=== PATIENT | female | born 1940 | race Caucasian/White ===

== ENCOUNTER → 2019-02-09 14:53 | Outpatient (CLI) | payer MEDICARE, BC ==
[2016-03-12 10:12] VITALS: BMI 36.3
[~2019-02-09 14:53] MED LIST: ABILIFY15 MG PO; ATIVAN1 MG PO; BIOTIN5 MG PO; FERROUS SULFAT325 MG PO; GLUCOPHAGE500 MG PO; HYDROCODONE-APA1 TAB PO; LASIX40 MG PO; MULTIPLE VITAMI1 TA1 PO; OMEPRAZOLE40 MG PO; POTASSIUM99 M1; PRINIVIL20 MG PO; PROAIR HFA8.5 GM INH; VITAMIN D31000 UNIT PO; ZOLOFT100 MG PO
== END | disposition home or self-care (01) ==
LOC: D.LABREF 14:53
PROVIDERS: ATTEND Orthopaedic Surgery
DX: M17.12 Unilateral primary osteoarthritis, left knee (principal)

== ENCOUNTER 2019-02-13 17:11 | Inpatient (IN) | payer MEDICARE, BC ==
[~2019-02-13] VITALS: Ht 157.5 cm; Wt 104.5 kg
[2019-02-22 11:26] LABS: ANION GAP 11.2 mmol/L (8-16); CALCIUM 9.2 mg/dL (8.5-10.1); POTASSIUM - SERUM 4.2 mmol/L (3.5-5.1)
[2019-02-22 11:31] LABS: BASOPHILS 0.3 % (0-2); EOSINOPHILS 4.4 % (0-7); HEMATOCRIT 34.5 % (36.0-48.0); IMMATURE GRANULOCYTES 0.2 % (0-5); LYMPHOCYTES 16.2 % (15-50); MCH 28.6 pg (26.0-34.0); MCHC 31.9 g/dL (31.0-37.0); MCV 89.6 fL (80.0-100.0); MEAN PLATELET VOLUME 9.7 fL (7.4-10.4); MONOCYTES 6.7 % (2-11); NEUTROPHILS 72.2 % (40-80); PLATELET COUNT 277 10x3/uL (130-400); RBC 3.85 10x6/uL (4.00-5.40)
[2019-02-22 11:33] LABS: APTT 31.8 SECONDS (22.8-39.4); INR 0.89 (0.85-1.17); PROTIME 11.6 SECONDS (11.6-15.0)
[2019-02-22 13:15] LABS: APPEARANCE CLEAR (CLEAR); BACTERIA FEW /hpf (NEGATIVE); BILIRUBIN NEGATIVE (NEGATIVE); COLOR YELLOW (YELLOW); EPITHELIAL CELLS 0-5 /hpf (0-5); GLUCOSE NEGATIVE (NEGATIVE); KETONE NEGATIVE (NEGATIVE); MUCUS <1+ /lpf (NONE SEEN); NITRITE NEGATIVE (NEGATIVE); PROTEIN NEGATIVE (NEGATIVE); RED CELLS - URINE RARE /hpf (0-5); SPECIFIC GRAVITY 1.015 (1.005-1.020); UROBILINOGEN NORMAL (NORMAL); WHITE CELLS - URINE 0-5 /hpf (NEGATIVE)
[2019-02-22] MEDS ORDERED: IBUPROFEN600 MG PO (16:18)
[2019-02-22] MEDS ORDERED: ABILIFY10 MG PO (16:19)
[2019-02-22] MEDS ORDERED: LISINOPRIL20 MG PO (16:20)
[2019-02-22] MEDS ORDERED: FUROSEMIDE40 MG PO (16:20)
[2019-02-22] MEDS ORDERED: PROTONIX40 MG PO (16:20)
[2019-02-22] MEDS ORDERED: BUPROPION HCL100 MG PO (16:22)
[2019-02-22] MEDS ORDERED: ATIVAN1 MG PO (16:24)
[2019-02-22] MEDS ORDERED: ULTRAM50 MG PO (16:25)
[2019-02-22] MEDS ORDERED: allergy relief PO (16:26)
[2019-02-22] MEDS ORDERED: MERIBIN5 MG PO (16:26)
[2019-02-22] MEDS ORDERED: CENTRUM SILVER1 EAC3 PO (16:26)
[2019-02-22] MEDS ORDERED: CALCIUM 600 +1 EAC3 PO (16:27)
[2019-02-22] MEDS ORDERED: FLOVENT DISKU100 MCG INH (16:28)
[2019-02-22] MEDS ORDERED: ADVAIR HFA [SP]12 GM INH (16:30)
[2019-02-22] MEDS ORDERED: ZOLOFT100 MG PO (16:31)
[2019-02-22] MEDS ORDERED: DONEPEZIL HCL5 MG PO (16:31)
[2019-02-22] MEDS ORDERED: EZFE 200200 MG PO (16:31)
[2019-02-28] VITALS (13 sets, daily range): BP systolic 127–178; BP diastolic 44–67; Ht 157.5 cm; Wt 104.5 kg
[2019-02-28] MEDS ORDERED: CIPRO500 MG PO (07:07)
--- NOTE | 2019-02-28 09:30 | NUR ---
PLASMA BLADE SET AT 6/8. BOVIE PAD ON RIGHT SIDE. LOT [id number] EXP 11/16/2020. LAMANAR FLOW NOT IN USE. TRAFFIC MONITORED AND KEPT TO MINIMUM. ROOM CLEAN WITH ASEPTIC TECHNIQUE PRIOR TO PROCEDURE. LEFT UPPER THIGH TO TOES CIRCUMFRETIALLY WITH ALCOHOL, HIBICLENS, AND CHLOROPREP. VANC 1G TOBRAMYOCIN 1.25G APPLIED TO WOUND BED.
[2019-02-28 15:55] LABS: BASOPHILS 0.1 % (0-2); EOSINOPHILS 0.2 % (0-7); HEMATOCRIT 30.8 % (36.0-48.0); HEMOGLOBIN 9.5 g/dL (12-16); IMMATURE GRANULOCYTES 0.3 % (0-5); LYMPHOCYTES 6.3 % (15-50); MCH 28.4 pg (26.0-34.0); MCHC 30.8 g/dL (31.0-37.0); MCV 92.2 fL (80.0-100.0); MEAN PLATELET VOLUME 9.8 fL (7.4-10.4); MONOCYTES 2.7 % (2-11); NEUTROPHILS 90.4 % (40-80); PLATELET COUNT 287 10x3/uL (130-400); RBC 3.34 10x6/uL (4.00-5.40); RDW 12.8 % (11.5-14.5); WBC 12.1 10x3/uL (4.8-10.8)
[2019-02-28 16:01] LABS: ANION GAP 11.2 mmol/L (8-16); BILIRUBIN - TOTAL 0.17 mg/dL (0.2-1.3); CARBON DIOXIDE 27.4 mmol/L (21.0-32.0); CREATININE - SERUM 1.4 mg/dL (0.6-1.3); POTASSIUM - SERUM 4.6 mmol/L (3.5-5.1); PROTEIN - SERUM 6.2 g/dL (6.4-8.2)
--- NOTE | 2019-02-28 20:00 | NUR ---
ASSESSMENT PER FLOWSHEET. DRSG TO LEFT KNEE C/D/I. LEG IN CPM. DUE TO BE REMOVED. IV PATENT RT FOREARM OF 1/2NS AT 50CC'S/HR. SR UP X2 CALL LIGHT WITHIN REACH. LUCAS MAT ON.
--- NOTE | 2019-02-28 21:00 | NUR ---
MEDS PER MAR COMPLETE BED BATH WITH LINENS CHANGE DONE PER DIRECTIONAL DRILLER.
--- NOTE | 2019-02-28 22:50 | NUR ---
MEDS GIVEN PER MAR.
[2019-03-01 01:50] VITALS: BP 136/59
--- NOTE | 2019-03-01 03:58 | NUR ---
C/O PAIN INCISIONAL AEA. NORCO 5MG TAB ONE PO GIVEN FOR PAIN CONTROL.
[2019-03-01 04:58] VITALS: BP 124/46
[2019-03-01 06:19] LABS: BASOPHILS 0.2 % (0-2); EOSINOPHILS 1.2 % (0-7); HEMATOCRIT 29.5 % (36.0-48.0); HEMOGLOBIN 9.1 g/dL (12-16); IMMATURE GRANULOCYTES 0.3 % (0-5); LYMPHOCYTES 21.6 % (15-50); MCH 28.3 pg (26.0-34.0); MCHC 30.8 g/dL (31.0-37.0); MCV 91.9 fL (80.0-100.0); MEAN PLATELET VOLUME 9.6 fL (7.4-10.4); MONOCYTES 8.8 % (2-11); NEUTROPHILS 67.9 % (40-80); PLATELET COUNT 280 10x3/uL (130-400); RBC 3.21 10x6/uL (4.00-5.40); RDW 12.8 % (11.5-14.5); WBC 9.5 10x3/uL (4.8-10.8)
[2019-03-01 06:36] LABS: ALBUMIN 2.9 g/dL (3.4-5.0); ANION GAP 10.9 mmol/L (8-16); BILIRUBIN - TOTAL 0.15 mg/dL (0.2-1.3); CARBON DIOXIDE 28.1 mmol/L (21.0-32.0); CREATININE - SERUM 0.9 mg/dL (0.6-1.3); PROTEIN - SERUM 5.6 g/dL (6.4-8.2)
--- NOTE | 2019-03-01 07:27 | NUR ---
PT IS RESTING IN BED WITH EYES OPEN. RESPIRATIONS ARE EVEN AND UNLABORED. PT WITH LEFT LEG IN CPM AT THIS TIME. PT REPORTS THAT SHE IS STARTING TO HAVE THE FEELING RETURN TO LLE. PT IS ABLE TO WIGGLE LLE TOES AND PULSES ARE PALPABLE IN LEFT FOOT. DRESSING TO LEFT KNEE IS CDI. PT IS AAO X 4. PT DENIES PRESENCE OF N/V AND RATES PAIN 4/10. WILL ADDRESS. SEE EMAR. BED IS IN THE LOWEST POSITION. CALL LIGHT AND BEDSIDE TABLE ARE WITHIN REACH. SIDE RAILS X 2. LUCAS ALARM IS ON AND WORKING. PT DENIES FURTHER NEEDS. WILL CONT TO MONITOR.
[2019-03-01 09:03] VITALS: BP 138/65
--- NOTE | 2019-03-01 11:51 | MORECARE ---
CASE MANAGEMENT DISCHARGE SUMMARY PATIENT: JOSE ROBERTO LLAMAS UNIT: [id number] ADM DATE: 02/28/19 AGE: 78 : 41 SEX: F ROOM/BED: D.2228 AUTHOR: JOSE F GALICIA PHYSICIAN: REFERRING PHYSICIAN: MAIA EMERSON DO DATE OF SERVICE: 03/01/19 Discharge Plan Patient Name: JOSE ROBERTO LLAMAS [facility] [facility] 1940 Planned Disposition: Care Home Facility Anticipated Discharge Date: 03/03/19 Discharge Date: Expected LOS: 3 Initial Reviewer: [id number] Initial Review Date: 03/01/2019 Generated: 03/01/19 12:51 pm DCPIA - Discharge Planning Initial Assessment Updated by [email or web address]: Dania Turpin on 03/01/19 11:49 am * Is the patient Alert and Oriented? Yes * How many steps to enter\exit or inside your home? 3/0 * PCP Ashley Juarez NP with Dr. Tanner in [facility]. * Pharmacy [facility] in [place] * Preadmission Environment Home with Family * ADLs Independent * Equipment Other Rolling Walker * Other Equipment CPM Ice machine * List name and contact numbers for known caregivers / representatives who currently or will assist patient after discharge: Mike Llamas - [facility] - [phone] * Verbal permission to speak to the caregivers and representatives has been obtained from the patient. Yes * Community resources currently utilized None * Additional services required to return to the preadmission environment? Yes * Can the patient safely return to the preadmission environment? Yes * Has this patient been hospitalized within the prior 30 days at any hospital? No Patient Name: JOSE ROBERTO LLAMAS Page [id number] at 1151 All edits/amendments must be made on the electronic document DICTATION DATE: 03/01/19 1151 COST CONTROL SUPERVISOR: DAVID 03/01/19 115 RPT#: [id number] DC DATE: STATUS: ADM IN [facility] [address] [place] [address] END OF REPORT
--- NOTE | 2019-03-01 11:59 | MORECARE ---
CASE MANAGEMENT DISCHARGE SUMMARY PATIENT: JOSE ROBERTO LLAMAS UNIT: [id number] ADM DATE: 02/28/19 AGE: 78 : 41 SEX: F ROOM/BED: D.2228 AUTHOR: FRIDA,DOC PHYSICIAN: REFERRING PHYSICIAN: MAIA EMERSON DO DATE OF SERVICE: 03/01/19 Discharge Plan Patient Name: JOSE ROBERTO LLAMAS Facility: [facility]:[place] : 1940 Planned Disposition: Longterm Facility Anticipated Discharge Date: 03/03/19 Discharge Date: Expected LOS: 3 Initial Reviewer: [email or web address] Initial Review Date: 03/01/2019 Generated: 03/01/19 12:59 pm Comments DCP- Discharge Planning Updated by [id number]: Dania Turpin on 03/01/19 10:[address] Patient Name: JOSE ROBERTO LLAMAS Admission Status: Elective Accout number: [id number] Admission Date: 02-28-2019 : 1940 Admission Diagnosis: Attending: MAIA EMERSON Current LOS: 1 Anticipated DC Date: 03-03-2019 Planned Disposition: Longterm Facility Primary Insurance: MEDICARE A & B Discharge Planning Comments: CM met with patient and her to discuss discharge planning/needs. She states she would like to go to [place] for skilled therapy prior to going home. states he will take her there. Their physical address is [address] [place] [address]. I have discussed this with Dr. Emerson and he is in agreement, plan to discharge Wednesday after 3 midnight's have been met. I spoke with rusty Ayala for [place], and clinical faxed. CM will continue to follow and assist with discharge planning/needs. Television Program Director: Dania Turpin DCPIA - Discharge Planning Initial Assessment Updated by [id number]: Dania Turpin on 03/01/19 11:49 am * Is the patient Alert and Oriented? Yes * How many steps to enter\exit or inside your home? 3/0 * PCP Ashley Juarez, WEIR FISHERMAN with Dr. Tanner in [facility]. * Pharm[facility] in [place] * Preadmission Environment Home with Family * ADLs Independent * Equipment Other Rolling Walker * Other Equipment CPM Ice machine * List name and contact numbers for known caregivers / representatives who currently or will assist patient after discharge: Mike Llamas - [facility] - [phone] * Verbal permission to speak to the caregivers and representatives has been obtained from the patient. Yes * Community resources currently utilized None * Additional services required to return to the preadmission environment? Yes * Can the patient safely return to the preadmission environment? Yes * Has this patient been hospitalized within the prior 30 days at any hospital? No Coverage Notice Reviewer: [id number] Turpin Notice Issued Date-Time: 03/01/2019 11:51 Notice Type: Patient Choice Letter Notice Delivered To: Patient Relationship to Patient: Self Acid Bath Mixer Name: Delivery Method: HAND - Hand Delivered Jocelyne Days: Prior Verbal Notification: Recipient Understood Notice: Yes Recipient Signature: Yes Med Rec Note Co-signed by Attending: Coverage Notice Comment: [facility] for [facility] Reviewer: [id number] Turpin Notice Issued Date-Time: 03/01/2019 11:51 Notice Type: IM Discharge Notice Notice Delivered To: Patient Relationship to Patient: Self Acid Bath Mixer Name: Delivery Method: HAND - Hand Delivered Jocelyne Days: Prior Verbal Notification: Recipient Understood Notice: Yes Recipient Signature: Yes Med Rec Note Co-signed by Attending: Coverage Notice Comment: IMM explained, signed, given, copy placed in MR Last DP export: 03/01/19 10:51 a Patient Name: JOSE ROBERTO LLAMAS Page [id number] at 1159 All edits/amendments must be made on the electronic document DICTATION DATE: 03/01/19 1159 COMBINATION MACHINE TOOL OPERATOR: DAVID 03/01/19 1159 RPT#: [id number] DC DATE: STATUS: ADM IN [facility] [address] [place] [address] END OF REPORT
--- NOTE | 2019-03-01 12:07 | MORECARE ---
CASE MANAGEMENT DISCHARGE SUMMARY PATIENT: JOSE ROBERTO LLAMAS UNIT: [id number] ADM DATE: 02/28/19 AGE: 78 : 41 SEX: F ROOM/BED: D.2228 AUTHOR: FRIDA,DOC PHYSICIAN: REFERRING PHYSICIAN: MAIA EMERSON DO DATE OF SERVICE: 03/01/19 Discharge Plan Patient Name: JOSE ROBERTO LLAMAS Facility[facility]:[place] : 1940 Planned Disposition: Correction Facility Anticipated Discharge Date: 03/03/19 Discharge Date: Expected LOS: 3 Initial Reviewer: [id number] Initial Review Date: 03/01/2019 Generated: 03/01/19 1:07 pm Comments DCP- Discharge Planning Updated by [id number]: Dania Turpin on 03/01/19 10:[address] Patient Name: JOSE ROBERTO LLAMAS Admission Status: Elective Accout number: [id number] Admission Date: 02-28-2019 : 1940 Admission Diagnosis: Attending: MAIA EMERSON Current LOS: 1 Anticipated DC Date: 03-03-2019 Planned Disposition: Correction Facility Primary Insurance: MEDICARE A & B Discharge Planning Comments: CM met with patient and her to discuss discharge planning/needs. She states she would like to go to [place] for skilled therapy prior to going home. states he will take her there. Their physical address is [address] [place] [address]. I have discussed this with Dr. Emerson and he is in agreement, plan to discharge Wednesday after 3 midnight's have been met. I spoke with rusty Ayala for [place], and clinical faxed. CM will continue to follow and assist with discharge planning/needs. Django Developer: Dania Turpin DCPIA - Discharge Planning Initial Assessment Updated by [id number]: Dania Turpin on 03/01/19 11:49 am * Is the patient Alert and Oriented? Yes * How many steps to enter\exit or inside your home? 3/0 * PCP Ashley Juarez, PIPE COREMAKER with Dr. Tanner in [facility]. * [facility] in [place] * Preadmission Environment Home with Family * ADLs Independent * Equipment Other Rolling Walker * Other Equipment CPM Ice machine * List name and contact numbers for known caregivers / representatives who currently or will assist patient after discharge: Mike Llamas - [facility] - [phone] * Verbal permission to speak to the caregivers and representatives has been obtained from the patient. Yes * Community resources currently utilized None * Additional services required to return to the preadmission environment? Yes * Can the patient safely return to the preadmission environment? Yes * Has this patient been hospitalized within the prior 30 days at any hospital? No External Providers [facility] Provider[facility] Next Contact Date: Service Request Date: Service Type: Resolution: Reviewer: Comments: Coverage Notice Reviewer: [id number] Turpin Notice Issued Date-Time: 03/01/2019 11:51 Notice Type: Patient Choice Letter Notice Delivered To: Patient Relationship to Patient: Self Prosthetic Makeup Designer Name: Delivery Method: HAND - Hand Delivered Jocelyne Days: Prior Verbal Notification: Recipient Understood Notice: Yes Recipient Signature: Yes Med Rec Note Co-signed by Attending: Coverage Notice Comment: [facility] Reviewer: [id number] Turpin Notice Issued Date-Time: 03/01/2019 11:51 Notice Type: IM Discharge Notice Notice Delivered To: Patient Relationship to Patient: Self Prosthetic Makeup Designer Name: Delivery Method: HAND - Hand Delivered Jocelyne Days: Prior Verbal Notification: Recipient Understood Notice: Yes Recipient Signature: Yes Med Rec Note Co-signed by Attending: Coverage Notice Comment: IMM explained, signed, given, copy placed in MR Last DP export: 03/01/19 10:59 a Patient Name: JOSE ROBERTO LLAMAS Page [phone] at 1207 All edits/amendments must be made on the electronic document DICTATION DATE: 03/01/19 1207 FORMULA CLERK: DAVID 03/01/19 1207 RPT#: [id number] DC DATE: STATUS: ADM IN [facility] [address] [place] [address] END OF REPORT
[2019-03-01 12:56] VITALS: BP 141/97
[2019-03-01 16:33] VITALS: BP 162/51
[2019-03-01 20:00] VITALS: BP 155/65
[2019-03-02 04:00] VITALS: BP 167/74
[2019-03-02 06:09] LABS: BASOPHILS 0.3 % (0-2); EOSINOPHILS 2.8 % (0-7); HEMOGLOBIN 9.4 g/dL (12-16); IMMATURE GRANULOCYTES 0.4 % (0-5); LYMPHOCYTES 14.7 % (15-50); MCH 28.6 pg (26.0-34.0); MCHC 31.3 g/dL (31.0-37.0); MCV 91.2 fL (80.0-100.0); MEAN PLATELET VOLUME 9.6 fL (7.4-10.4); MONOCYTES 9.7 % (2-11); NEUTROPHILS 72.1 % (40-80); PLATELET COUNT 272 10x3/uL (130-400); RBC 3.29 10x6/uL (4.00-5.40); RDW 12.9 % (11.5-14.5); WBC 9.4 10x3/uL (4.8-10.8)
[2019-03-02 06:41] LABS: ALBUMIN 2.9 g/dL (3.4-5.0); ANION GAP 12.8 mmol/L (8-16); BILIRUBIN - TOTAL 0.23 mg/dL (0.2-1.3); CALCIUM 8.5 mg/dL (8.5-10.1); CARBON DIOXIDE 27.4 mmol/L (21.0-32.0); CREATININE - SERUM 1.1 mg/dL (0.6-1.3); POTASSIUM - SERUM 4.2 mmol/L (3.5-5.1); PROTEIN - SERUM 5.7 g/dL (6.4-8.2)
--- NOTE | 2019-03-02 07:18 | NUR ---
PT IS RESTING IN BED WITH EYES OPEN. RESPIRATIONS ARE EVEN AND UNLABORED. PT WITH RLE IN CPM. PT IS AAO X 4. PT DENIES PRESENCE OF PAIN/N/V AT THIS TIME. SCD TO LEFT LEG. BED IS IN THE LOWEST POSITION. CALL LIGHT AND BEDSIDE TABLE ARE WITHIN REACH. SIDE RAILS X 2 LUCAS ALARM IS ON AND WORKING. DRESSING TO RIGHT KNEE IS CDI/ PEDAL PULSES PALP. PT IS ABLE TO WIGGLE RIGHT TOES WITH EASE. PT DENIES FURTHER NEEDS. WILL CONT TO MONITOR.
--- NOTE | 2019-03-02 09:06 | MORECARE ---
CASE MANAGEMENT DISCHARGE SUMMARY PATIENT: JOSE ROBERTO LLAMAS UNIT: [id number] ADM DATE: 02/28/19 AGE: 78 : 41 SEX: F ROOM/BED: D.2228 AUTHOR: FRIDA,DOC PHYSICIAN: REFERRING PHYSICIAN: MAIA EMERSON DO DATE OF SERVICE: 03/02/19 Discharge Plan Patient Name: JOSE ROBERTO LLAMAS Facility: [facility]:[place] : 1940 Planned Disposition: Halfway Facility Anticipated Discharge Date: 03/03/19 Discharge Date: Expected LOS: 3 Initial Reviewer: [id number] Initial Review Date: 03/01/2019 Generated: 03/02/19 10:06 am Comments DCP- Discharge Planning Updated by [id number]: Dania Turpin on 03/02/19 8:[address] [place] [facility] [place]. CM will continue to follow and assist with discharge planning/needs. DCP- Discharge Planning Updated by [email or web address]: Dania Turpin on 03/01/19 10:[address] Patient Name: JOSE ROBERTO LLAMAS Admission Status: Elective Accout number: [id number] Admission Date: 02-28-2019 : 1940 Admission Diagnosis: Attending: MAIA EMERSON Current LOS: 1 Anticipated DC Date: 03-03-2019 Planned Disposition: Halfway Facility Primary Insurance: MEDICARE A & B Discharge Planning Comments: CM met with patient and her to discuss discharge planning/needs. She states she would like to go to [place] for skilled therapy prior to going home. states he will take her there. Their physical address is [address] [place] [address] Rd. Dante Ying. I have discussed this with Dr. Emerson and he is in agreement, plan to discharge Wednesday after 3 midnight's have been met. I spoke with rusty Ayala for [place], and clinical faxed. CM will continue to follow and assist with discharge planning/needs. Follow Up Clerk: Dania Turpin DCPIA - Discharge Planning Initial Assessment Updated by [id number]: Dania Turpin on 03/01/19 11:49 am * Is the patient Alert and Oriented? Yes * How many steps to enter\exit or inside your home? 3/0 * PCP Ashley Juarez INSURANCE CLAIM REPRESENTATIVE with Dr. Tanner in [facility]. * Pharmacy [facility] in [place] * Preadmission Environment Home with Family * ADLs Independent * Equipment Other Rolling Walker * Other Equipment CPM Ice machine * List name and contact numbers for known caregivers / representatives who currently or will assist patient after discharge: Mike Llamas [facility] - [phone] * Verbal permission to speak to the caregivers and representatives has been obtained from the patient. Yes * Community resources currently utilized None * Additional services required to return to the preadmission environment? Yes * Can the patient safely return to the preadmission environment? Yes * Has this patient been hospitalized within the prior 30 days at any hospital? No External Providers External Provider: TIFFANIE Barragan Next Contact Date: Service Request Date: Service Type: Resolution: Reviewer: Comments: Coverage Notice Reviewer: [id number] Turpin Notice Issued Date-Time: 03/01/2019 11:51 Notice Type: Patient Choice Letter Notice Delivered To: Patient Relationship to Patient: Self Building Services Coordinator Name: Delivery Method: HAND - Hand Delivered Jocelyne Days: Prior Verbal Notification: Recipient Understood Notice: Yes Recipient Signature: Yes Med Rec Note Co-signed by Attending: Coverage Notice Comment: [facility] for [facility] Reviewer: [id number] Turpin Notice Issued Date-Time: 03/01/2019 11:51 Notice Type: IM Discharge Notice Notice Delivered To: Patient Relationship to Patient: Self Building Services Coordinator Name: Delivery Method: HAND - Hand Delivered Jocelyne Days: Prior Verbal Notification: Recipient Understood Notice: Yes Recipient Signature: Yes Med Rec Note Co-signed by Attending: Coverage Notice Comment: IMM explained, signed, given, copy placed in MR Last DP export: 03/01/19 11:07 a Patient Name: JOSE ROBERTO LLAMAS Page [id number] at 0906 All edits/amendments must be made on the electronic document DICTATION DATE: 03/02/19905 ASP NET SOFTWARE DEVELOPER: DAVID 03/02/19905 RPT#: [id number] DC DATE: STATUS: ADM IN [facility] [address] [place] [address] END OF REPORT
[2019-03-02 09:13] VITALS: BP 175/80
--- NOTE | 2019-03-02 11:51 | MORECARE ---
CASE MANAGEMENT DISCHARGE SUMMARY PATIENT: JOSE ROBERTO LLAMAS UNIT: [id number] ADM DATE: 02/28/19 AGE: 78 : 41 SEX: F ROOM/BED: D.2228 AUTHOR: FRIDA,DOC PHYSICIAN: REFERRING PHYSICIAN: MAIA EMERSON DO DATE OF SERVICE: 03/02/19 Discharge Plan Patient Name: JOSE ROBERTO LLAMAS Facility: [facility]:[place] : 1940 Planned Disposition: Care Home Facility Anticipated Discharge Date: 03/03/19 Discharge Date: Expected LOS: 3 Initial Reviewer: [id number] Initial Review Date: 03/01/2019 Generated: 03/02/19 12:51 pm Comments DCP- Discharge Planning Updated by [email or web address]: Dania Turpin on 03/02/19 10:[address] Received ROLLA approval and faxed to rusty Ayala for [facility]. DCP- Discharge Planning Updated by [email or web address]: Dania Turpin on 03/02/19 8:[address] AMIRAH filled out and faxed to [facility] [place] approval to SNF. CM will continue to follow and assist with discharge planning/needs. DCP- Discharge Planning Updated by [id number]: Dania Turpin on 03/01/19 10:[address] Patient Name: JOSE ROBERTO LLAMAS Admission Status: Elective Accout number: [id number] Admission Date: 02-28-2019 : 1940 Admission Diagnosis: Attending: MAIA EMERSON Current LOS: 1 Anticipated DC Date: 03-03-2019 Planned Disposition: Care Home Facility Primary Insurance: MEDICARE A & B Discharge Planning Comments: CM met with patient and her to discuss discharge planning/needs. She states she would like to go to [place] for skilled therapy prior to going home. states he will take her there. Their physical address is [address] [place], [place] [address]Earnest Ying. I have discussed this with Dr. Emerson and he is in agreement, plan to discharge Wednesday after 3 midnight's have been met. I spoke with rusty Ayala for [place], and clinical faxed. CM will continue to follow and assist with discharge planning/needs. Communications Consultant: Dania Turpin DCPIA - Discharge Planning Initial Assessment Updated by [email or web address]: Dania Turpin on 03/01/19 11:49 am * Is the patient Alert and Oriented? Yes * How many steps to enter\exit or inside your home? 3/0 * PCP Ashley Juarez GROUP PRACTICE PEDIATRICIAN with Dr. Tanner in [facility]. * Pharmacy [facility] in [place] * Preadmission Environment Home with Family * ADLs Independent * Equipment Other Rolling Walker * Other Equipment CPM Ice machine * List name and contact numbers for known caregivers / representatives who currently or will assist patient after discharge: Mike Llamas [facility] - [phone] * Verbal permission to speak to the caregivers and representatives has been obtained from the patient. Yes * Community resources currently utilized None * Additional services required to return to the preadmission environment? Yes * Can the patient safely return to the preadmission environment? Yes * Has this patient been hospitalized within the prior 30 days at any hospital? No Coverage Notice Reviewer: [id number] Kasie Turpin Notice Issued Date-Time: 03/01/2019 11:51 Notice Type: Patient Choice Letter Notice Delivered To: Patient Relationship to Patient: Self Cinema Or Theatre Manager Name: Delivery Method: HAND - Hand Delivered Jocelyne Days: Prior Verbal Notification: Recipient Understood Notice: Yes Recipient Signature: Yes Med Rec Note Co-signed by Attending: Coverage Notice Comment: [facility] for [facility] Reviewer: [id number] Kasie Turpin Notice Issued Date-Time: 03/01/2019 11:51 Notice Type: IM Discharge Notice Notice Delivered To: Patient Relationship to Patient: Self Cinema Or Theatre Manager Name: Delivery Method: HAND - Hand Delivered Jocelyne Days: Prior Verbal Notification: Recipient Understood Notice: Yes Recipient Signature: Yes Med Rec Note Co-signed by Attending: Coverage Notice Comment: IMM explained, signed, given, copy placed in MR Last DP export: 03/02/19 8:06 a Patient Name: JOSE ROBERTO LLAMAS Page [phone] at 1151 All edits/amendments must be made on the electronic document DICTATION DATE: 03/02/19 1151 OCEANOGRAPHIC METEOROLOGIST: DAVID 03/02/19 1151 RPT#: [id number] DC DATE: STATUS: ADM IN [facility] [address] [place] [address] END OF REPORT
[2019-03-02 12:14] VITALS: BP 135/56
[2019-03-02 14:28] LABS: APPEARANCE CLEAR (CLEAR); BILIRUBIN NEGATIVE (NEGATIVE); COLOR STRAW (YELLOW); GLUCOSE NEGATIVE (NEGATIVE); KETONE NEGATIVE (NEGATIVE); NITRITE NEGATIVE (NEGATIVE); PROTEIN NEGATIVE (NEGATIVE); SPECIFIC GRAVITY 1.005 (1.005-1.020); UROBILINOGEN NORMAL (NORMAL)
[2019-03-02 17:07] VITALS: BP 164/71
--- NOTE | 2019-03-02 19:00 | NUR ---
BEDSIDE REPORT RECEIVED AND CARE OF PT ASSUMED. PT LYING IN LOW FRANKS'S POSITION WITH LEFT LEG IN CPM THERAPY. IV TO RIGHT FA SALINE LOCKED. PLEXI PULSE IN PLACE ON LEFT FOOT. SCD IN PLACE ON RIGHT LOWER LEG. WILL MONITOR FOR NEEDS.
[2019-03-02 20:00] VITALS: BP 160/67
--- NOTE | 2019-03-02 20:26 | NUR ---
HS MEDICATIONS GIVEN. FSBS 123 THIS CHECK REQUIRING NO COVERAGE PER SLIDING SCALE.
--- NOTE | 2019-03-02 20:35 | NUR ---
HS SNACK PROVIDED PER DIET ORDER: MANDI CRACKERS AND SKIM MILK.
--- NOTE | 2019-03-02 21:30 | NUR ---
REMOVED CPM THERAPY AND POSITIONED PT FOR COMFORT.
--- NOTE | 2019-03-02 22:29 | NUR ---
GAVE PERCOCET 10 PO PER REQUEST FOR PAIN...PER PRN ORDER. WILL MONITOR FOR EFFECTIVENESS.
--- NOTE | 2019-03-03 04:43 | NUR ---
GAVE PERCOCET 10 MG PO PER REQUEST PT GOING ON CPM SOON.
--- NOTE | 2019-03-03 05:44 | NUR ---
CPM PLACED ON LEFT LEG PER ORDER.
[2019-03-03 06:26] VITALS: BP 174/77
--- NOTE | 2019-03-03 07:14 | NUR ---
0715- PT WOULD NOT TAKE TREATMENT AT THIS TIME
[2019-03-03 07:35] LABS: BASOPHILS 0.1 % (0-2); EOSINOPHILS 2.4 % (0-7); HEMATOCRIT 29.6 % (36.0-48.0); HEMOGLOBIN 9.4 g/dL (12-16); IMMATURE GRANULOCYTES 0.2 % (0-5); LYMPHOCYTES 13.5 % (15-50); MCH 28.4 pg (26.0-34.0); MCHC 31.8 g/dL (31.0-37.0); MCV 89.4 fL (80.0-100.0); MEAN PLATELET VOLUME 9.5 fL (7.4-10.4); MONOCYTES 8.6 % (2-11); NEUTROPHILS 75.2 % (40-80); PLATELET COUNT 294 10x3/uL (130-400); RBC 3.31 10x6/uL (4.00-5.40); RDW 12.8 % (11.5-14.5); WBC 9.8 10x3/uL (4.8-10.8)
[2019-03-03 07:44] LABS: ALBUMIN 2.9 g/dL (3.4-5.0); ANION GAP 12.5 mmol/L (8-16); BILIRUBIN - TOTAL 0.25 mg/dL (0.2-1.3); CARBON DIOXIDE 29.3 mmol/L (21.0-32.0); POTASSIUM - SERUM 3.8 mmol/L (3.5-5.1); PROTEIN - SERUM 5.8 g/dL (6.4-8.2)
[2019-03-03] MEDS ORDERED: PERCOCET 5-3251 TAB PO ×2 (07:58→09:28)
[2019-03-03] MEDS ORDERED: KEFLEX500 MG PO ×2 (07:58→09:26)
[2019-03-03] MEDS ORDERED: ELIQUIS2.5 MG PO ×2 (07:58→09:27)
[2019-03-03 08:44] VITALS: BP 156/62
--- NOTE | 2019-03-03 09:00 | MORECARE ---
CASE MANAGEMENT DISCHARGE SUMMARY PATIENT: JOSE ROBERTO LLAMAS UNIT: [id number] ADM DATE: 02/28/19 AGE: 78 : 41 SEX: F ROOM/BED: D.2228 AUTHOR: FRIDA,DOC PHYSICIAN: REFERRING PHYSICIAN: MAIA EMERSON DO DATE OF SERVICE: 03/03/19 Discharge Plan Patient Name: JOSE ROBERTO LLAMAS Facility: [facility]:[place] : 1940 Planned Disposition: Care Home Facility Anticipated Discharge Date: 03/03/19 Discharge Date: Expected LOS: 3 Initial Reviewer: [id number] Initial Review Date: 03/01/2019 Generated: 03/03/19 10:00 am Comments DCP- Discharge Planning Updated by [email or web address]: Dania Turpin on 03/03/19 7:[address] Patient Name: JOSE ROBERTO LLAMAS Encounter No: [id number] : 1940 Primary Insurance: MEDICARE A & B Anticipated DC Date: 03-03-2019 Planned Disposition: Care Home Facility External Planned Provider: : DCP follow-up note: Patient and family in agreement with discharge plan. No changes to plan. She has been accepted to [facility]. I called Bell Gonzalez, she states they are ready for her. is in the room and he states he will drive her there. DC orders and MAR faxed to [phone]. She will be admitted to a skilled (Medicare) bed. Case management will follow and assist as needed. Dania Turpin DCP- Discharge Planning Updated by [email or web address]: Dania Turpin on 03/02/19 10:[address] Received [place] approval and faxed to rusty Ayala for [facility]. DCP- Discharge Planning Updated by [email or web address]: Dania Turpin on 03/02/19 8:[address] [facility]IR[facility] [place] [facility] [place]. CM will continue to follow and assist with discharge planning/needs. DCP- Discharge Planning Updated by [id number]: Dania Turpin on 03/01/19 10:[address] Patient Name: JOSE ROBERTO LLAMAS Admission Status: Elective Accout number: [id number] Admission Date: 02-28-2019 : 1940 Admission Diagnosis: Attending: MAIA EMERSON Current LOS: 1 Anticipated DC Date: 03-03-2019 Planned Disposition: Care Home Facility Primary Insurance: MEDICARE A & B Discharge Planning Comments: CM met with patient and her to discuss discharge planning/needs. She states she would like to go to [place] for skilled therapy prior to going home. states he will take her there. Their physical address is [address] [place] [address]. I have discussed this with Dr. Emerson and he is in agreement, plan to discharge Wednesday after 3 midnight's have been met. I spoke with rusty Ayala for [place], and clinical faxed. CM will continue to follow and assist with discharge planning/needs. Biofuels Plant Manager: Dania Turpin DCPIA - Discharge Planning Initial Assessment Updated by [email or web address]: Dania Turpin on 03/01/19 11:49 am * Is the patient Alert and Oriented? Yes * How many steps to enter\exit or inside your home? 3/0 * PCP Ashley Juarez, HOME AIDE with Dr. Tanner in [facility]. * Pharmacy [facility] in [place] * Preadmission Environment Home with Family * ADLs Independent * Equipment Other Rolling Walker * Other Equipment CPM Ice machine * List name and contact numbers for known caregivers / representatives who currently or will assist patient after discharge: Mike Llamas [facility] - [phone] * Verbal permission to speak to the caregivers and representatives has been obtained from the patient. Yes * Community resources currently utilized None * Additional services required to return to the preadmission environment? Yes * Can the patient safely return to the preadmission environment? Yes * Has this patient been hospitalized within the prior 30 days at any hospital? No Coverage Notice Reviewer: [id number] Kasie Turpin Notice Issued Date-Time: 03/01/2019 11:51 Notice Type: Patient Choice Letter Notice Delivered To: Patient Relationship to Patient: Self Personnel Research Psychologist Name: Delivery Method: HAND - Hand Delivered Jocelyne Days: Prior Verbal Notification: Recipient Understood Notice: Yes Recipient Signature: Yes Med Rec Note Co-signed by Attending: Coverage Notice Comment: VICKI for [facility] Reviewer: [id number] Kasie Turpin Notice Issued Date-Time: 03/01/2019 11:51 Notice Type: IM Discharge Notice Notice Delivered To: Patient Relationship to Patient: Self Personnel Research Psychologist Name: Delivery Method: HAND - Hand Delivered Jocelyne Days: Prior Verbal Notification: Recipient Understood Notice: Yes Recipient Signature: Yes Med Rec Note Co-signed by Attending: Coverage Notice Comment: IMM explained, signed, given, copy placed in MR Last DP export: 03/02/19 10:51 a Patient Name: JOSE ROBERTO LLAMAS Page [id number] at 0900 All edits/amendments must be made on the electronic document DICTATION DATE: 03/03/19899 CENTRAL STERILE TECHNICIAN: DAVID 03/03/19899 RPT#: [id number] DC DATE: STATUS: ADM IN [facility] [address] [place] [address] END OF REPORT
--- NOTE | 2019-03-03 09:00 | NUR ---
ALERT AND ORIENTED X4 WITH PRESENT. DRESSING CHANGED TO LT KNEE AND CLEANED WITH SALINE WITH DRESSING APPLIED. NO S/S OF INFECTION NOTED. IV DISCONTINUED IN ANTICIPATION OF DISCHARGE.
--- NOTE | 2019-03-03 10:45 | NUR ---
DISCHARGED UNDER CARE OF AND VERBALIZED UNDERSTANDING OF DISCHARGE INSTRUCTIONS. REPORT CALLED TO KRYSTLE AT [facility]. INFLUENZA VACCINE GIVEN TO LT. DELTOID
--- NOTE | 2019-03-07 07:08 | MORECARE ---
CASE MANAGEMENT DISCHARGE SUMMARY PATIENT: JOSE ROBERTO LLAMAS UNIT: [id number] ADM DATE: 02/28/19 AGE: 78 : 42 SEX: F ROOM/BED: D.2228 AUTHOR: FRIDA,DOC PHYSICIAN: REFERRING PHYSICIAN: MAIA EMERSON DO DATE OF SERVICE: 03/07/19 Discharge Plan Patient Name: JOSE ROBERTO LLAMAS Facility: [facility]:[place] : 1940 Planned Disposition: Usp Facility Anticipated Discharge Date: 03/03/19 Discharge Date: 03/03/2019 Expected LOS: 3 Initial Reviewer: [id number] Initial Review Date: 03/01/2019 Generated: 03/07/19 8:07 am Comments DCP- Discharge Planning Updated by [id number]: Dania Turpin on 03/03/19 7:[address] Patient Name: JOSE ROBERTO LLAMAS Encounter No: [id number] : 1940 Primary Insurance: MEDICARE A & B Anticipated DC Date: 03-03-2019 Planned Disposition: Usp Facility External Planned Provider: : DCP follow-up note: Patient and family in agreement with discharge plan. No changes to plan. She has been accepted to [facility]. I called Bell Gonzalez, she states they are ready for her. is in the room and he states he will drive her there. DC orders and MAR faxed to [phone]. She will be admitted to a skilled (Medicare) bed. Case management will follow and assist as needed. Dania Turpin DCP- Discharge Planning Updated by [id number]: Dania Turpin on 03/02/19 10:[address] Received [place] approval and faxed to rusty Ayala for [facility]. DCP- Discharge Planning Updated by [id number]: Dania Turpin on 03/02/19 8:[address] AMIRAH filled out and faxed to AMIR[facility] for approval to SNF. CM will continue to follow and assist with discharge planning/needs. DCP- Discharge Planning Updated by [id number]: Dania Turpin on 03/01/19 10:[address] Patient Name: JOSE ROBERTO LLAAMS Admission Status: Elective Accout number: [id number] Admission Date: 02-28-2019 : 1940 Admission Diagnosis: Attending: MAIA EMERSON Current LOS: 1 Anticipated DC Date: 03-03-2019 Planned Disposition: Usp Facility Primary Insurance: MEDICARE A & B Discharge Planning Comments: CM met with patient and her to discuss discharge planning/needs. She states she would like to go to [place] for skilled therapy prior to going home. states he will take her there. Their physical address is [address] [place] [address]. I have discussed this with Dr. Emerson and he is in agreement, plan to discharge Wednesday after 3 midnight's have been met. I spoke with rusty Ayala for [facility], and clinical faxed. CM will continue to follow and assist with discharge planning/needs. Machine Designer: Dania Turpin MEPIA - Discharge Planning Initial Assessment Updated by [email or web address]: Dania Turpin on 03/01/19 11:49 am * Is the patient Alert and Oriented? Yes * How many steps to enter\exit or inside your home? 3/0 * PCP Ashley Juarez, LAYOUT MECHANIC with Dr. Tanner in [facility]. * Pharmacy [facility] in [place] * Preadmission Environment Home with Family * ADLs Independent * Equipment Other Rolling Walker * Other Equipment CPM Ice machine * List name and contact numbers for known caregivers / representatives who currently or will assist patient after discharge: Mike Llamas - [facility] - [phone] * Verbal permission to speak to the caregivers and representatives has been obtained from the patient. Yes * Community resources currently utilized None * Additional services required to return to the preadmission environment? Yes * Can the patient safely return to the preadmission environment? Yes * Has this patient been hospitalized within the prior 30 days at any hospital? No Coverage Notice Reviewer: [id number] Kasie Turpin Notice Issued Date-Time: 03/01/2019 11:51 Notice Type: Patient Choice Letter Notice Delivered To: Patient Relationship to Patient: Self Respiratory Care Assistant Name: Delivery Method: HAND - Hand Delivered Jocelyne Days: Prior Verbal Notification: Recipient Understood Notice: Yes Recipient Signature: Yes Med Rec Note Co-signed by Attending: Coverage Notice Comment: VICKI for [facility] Reviewer: [id number] Kasie Turpin Notice Issued Date-Time: 03/01/2019 11:51 Notice Type: IM Discharge Notice Notice Delivered To: Patient Relationship to Patient: Self Respiratory Care Assistant Name: Delivery Method: HAND - Hand Delivered Jocelyne Days: Prior Verbal Notification: Recipient Understood Notice: Yes Recipient Signature: Yes Med Rec Note Co-signed by Attending: Coverage Notice Comment: IMM explained, signed, given, copy placed in MR Last DP export: 03/03/19 8:00 a Patient Name: JOSE ROBERTO LLAMAS Page [id number] at 0708 All edits/amendments must be made on the electronic document DICTATION DATE: 03/07/19706 HEALTH CARE MARKETING SPECIALIST: DAVID 03/07/19706 RPT#: [id number] DC DATE:03/03/19 STATUS: DIS IN [facility] [address] [place] [address] END OF REPORT
--- NOTE | 2019-04-25 07:01 | OP ---
PATIENT NAME: JOSE ROBERTO LLAMAS MEDICAL RECORD: [id number] :[birth year] LOCATION:D.MS [id number] ADMISSION DATE:02/28/19 SURGEON: LINWOOD EMERSON DO DATE OF OPERATION: 02/28/2019 PROCEDURE PERFORMED: Left total knee arthroplasty. PREOPERATIVE DIAGNOSIS: Left knee osteoarthritis. POSTOPERATIVE DIAGNOSIS: Left knee osteoarthritis. INDICATIONS: Ms. Llamas is a 78-year-old female, who has tried all manner of nonoperative treatment for her left knee osteoarthritis. She has tried injection, bracing and is tired of dealing with the pain. It was affecting her activities of daily living and wanted something done surgically. I informed her of the risks including infection, bleeding, damage to nerves and vessels, need for further surgery, continued pain, loss of motion. She is okay with all that. Fracture, blood clots, and even , she was okay with those risks and signed the consent. SURGEON: Linwood Emerson DO SWITCH CLEANER: Niko Montejo, advanced nurse practitioner. DESCRIPTION OF PROCEDURE: The patient was taken to the operative suite after given a block by anesthesia, placed in a supine position, given 2 grams of Ancef and 80 mg of gentamicin. A time-out was performed. Everyone was in agreement with correct side, site, patient and procedure. The patient was then sedated and LMA was placed. The left lower extremity was prepped and draped in sterile fashion. The incision was marked out and covered in I[place]an. The incision then began over the marked out incision with 10 blade scalpel down to the capsule. A medial parapatellar approach was then used to open the capsule and the patella was exposed. Further fat pad was removed. Patella was milled down to fit a prosthesis. The knee was then flexed up. The femoral canal was then entered with a drill and the distal femur guide was used and cut the distal femur. The proximal tibia was then exposed and cut off the lateral side 2 mm due to the valgus knee. Once that was cleared out, the menisci were removed, any bleeding was coagulated with Aquamantys. The extension block then fit in the knee. The knee was then flexed up. The femur was then measured to be 57.5. A 4-in-1 cutting block was then used to cut the femur. The trial was then placed and the tibia was floated and arranged. The rotation was marked on the tibia. This was then removed. The patella was drilled as well as the lug holes in the femur. Tibia was then exposed and sized to be a 67. This was drilled and punched. Extra hole was put in the tibia. Cement was then mixed, put in the tibia and on the implant. It was impacted into place. Excess cement was removed. The femur was then impacted on. A 10 poly was then placed between and brought to extension. The patella was then cleaned off and cement was placed in the holes and on the patella. Prosthesis squeezed into place. Excess cement was removed. The knee was then irrigated with a liter of Bactisure and 1.5 liters of normal saline. The stem was trialled and fit very well. The anterior stabilized E poly was then placed and locked into place. The knee was then irrigated some more and Surgicel powder, vancomycin and tobramycin powder were placed in the wound. Capsule was then closed with #2 Ethibond in a [id number]-rz-lgplf fashion. Skin with 2-0 Vicryl in an inverted interrupted fashion. ZipLine was placed on the knee. Adaptic, 4 x 4s, ABD, Webril, Judah wrap were then placed on the knee by OPERATIVE REPORT [id number] JOSE ROBERTO LLAMAS APRN. The patient was awakened and taken to recovery in a stable condition. Blood loss was approximately 200 mL. Complications were none. TRANSINT:[id number] Voice Confirmation ID: [id number] DOCUMENT ID: [id number] 04/24/2019 Edited for davis Barcenas. LINWOOD EMERSON DO at 0701 CC: [id number] DICTATION DATE: 02/28/19 1022 TEXTILES PRINTER: 02/28/19 1256 DIS IN 03/03/19 [facility] [address] [place] [address]
== END 2019-03-03 10:45 | DRG 470 ==
LOC: D.MS 02-28 06:24 → D.SDCHOLD 02-28 06:24 → D.MS 02-28 11:14
PROVIDERS: Family Medicine; ADMIT Orthopaedic Surgery; ATTEND Orthopaedic Surgery
PROC: 0SRD0J9 Replacement of Left Knee Joint with Synthetic Substitute, Cemented, Open Approach (ICD-10-PCS; principal; 2019-02-28 08:30)
DX: M17.12 Unilateral primary osteoarthritis, left knee (principal); D62 Acute posthemorrhagic anemia; E11.65 Type 2 diabetes mellitus with hyperglycemia; I10 Essential (primary) hypertension; J44.9 Chronic obstructive pulmonary disease, unspecified; G47.33 Obstructive sleep apnea (adult) (pediatric); K21.9 Gastro-esophageal reflux disease without esophagitis; F41.8 Other specified anxiety disorders; E66.9 Obesity, unspecified; M54.2 Cervicalgia; M25.569 Pain in unspecified knee; M79.7 Fibromyalgia

== ENCOUNTER → 2019-07-20 14:41 | Outpatient (CLI) | payer MEDICARE, BC ==
[2019-02-28 14:48] VITALS: BMI 42.1
[~2019-07-20 14:41] MED LIST changes: +ABILIFY10 MG PO; +ADVAIR HFA [SP]12 GM INH; +BUPROPION HCL100 MG PO; +CALCIUM 600 +1 EAC3 PO; +CENTRUM SILVER1 EAC3 PO; +CIPRO500 MG PO; +DONEPEZIL HCL5 MG PO; +ELIQUIS2.5 MG PO; +EZFE 200200 MG PO; +FLOVENT DISKU100 MCG INH; +FUROSEMIDE40 MG PO; +IBUPROFEN600 MG PO; +KEFLEX500 MG PO; +LISINOPRIL20 MG PO; +MERIBIN5 MG PO; +PERCOCET 5-3251 TAB PO; +PROTONIX40 MG PO; +ULTRAM50 MG PO; +allergy relief PO
== END | disposition home or self-care (01) ==
LOC: D.CT 14:41
PROVIDERS: ATTEND Clinical Nurse Specialist Family Health
DX: M25.551 Pain in right hip (principal)